=== PATIENT | female | born 1965 | race Caucasian/White ===

== ENCOUNTER 2019-09-19 15:51 | Emergency (ER) | payer OTHER ==
[~2019-09-19] VITALS: Ht 165.1 cm; Wt 72.6 kg
[2019-09-19 16:03] VITALS: BP 124/66
--- NOTE | 2019-09-19 16:14 | NUR ---
PT AMBULATED TO ER BED 10
--- NOTE | 2019-09-19 17:00 | NUR ---
54/F PRESENTS TO ED, C/O R BREAST PAIN WITH YELLOW DISCHARGE, X4 DAYS. REPORTS SIMILAR EPISODE 6 MONTHS AGO WITH DX R BREAST CYST. PT DENIES FEVER/CHILLS, N/V. PT AWAKE AND ALERT, SKIN NORMAL COLOR WARM AND DRY, RR EVEN AND UNLABORED. HX R BREAST CYST OTC TYLENOL WITHOUT RELIEF
--- NOTE | 2019-09-19 17:00 | NUR ---
Note aylinone in EDM - 09/19/19 at 1741 by [email or web address] 54/F PRESENTS TO ED, C/O L BREAST PAIN WITH YELLOW DISCHARGE, X4 DAYS. REPORTS SIMILAR EPISODE 6 MONTHS AGO WITH DX L BREAST CYST. PT DENIES FEVER/CHILLS, N/V. PT AWAKE AND ALERT, SKIN NORMAL COLOR WARM AND DRY, RR EVEN AND UNLABORED. HX L BREAST CYST OTC TYLENOL WITHOUT RELIEF
--- NOTE | 2019-09-19 17:00 | NUR ---
Note undone in EDM - 09/19/19 at 1742 by [email or web address] 54/F PRESENTS TO ED, C/O L BREAST PAIN WITH YELLOW DISCHARGE, X4 DAYS. REPORTS SIMILAR EPISODE 6 MONTHS AGO WITH DX R BREAST CYST. PT DENIES FEVER/CHILLS, N/V. PT AWAKE AND ALERT, SKIN NORMAL COLOR WARM AND DRY, RR EVEN AND UNLABORED. HX R BREAST CYST OTC TYLENOL WITHOUT RELIEF
[2019-09-19 18:12] VITALS: BP 122/64
--- NOTE | 2019-09-19 18:12 | NUR ---
Patient discharged with v/s stable. Written and verbal after care instructions given and explained. Patient alert, oriented and verbalized understanding of instructions. Ambulatory with steady gait. All questions addressed prior to discharge. ID band removed. Patient advised to follow up with PMD. Rx of bactrim,motrin given. Patient educated on indication of medication including possible reaction and side effects. Opportunity to ask questions provided and answered.
== END 2019-09-19 18:12 | disposition home or self-care (01) ==
LOC: MED 15:51
DX: N61.0 Mastitis without abscess (principal); Z88.0 Allergy status to penicillin; Z98.890 Other specified postprocedural states
CPT/HCPCS: 99283